=== PATIENT | male | born 1940 ===

== ENCOUNTER 2023-04-24 07:33 | Day surgery (SDC) | payer OTHER ==
[~2023-04-24] VITALS: Ht 177.8 cm; Wt 91.4 kg
[~2023-04-24 07:33] MED LIST: Lactated Ringer's 1,000 ML IV ONE; propofoL 50 ML IV ONE
[2023-04-24] MEDS ORDERED: VITAMIN D310 MC4 (07:48)
[2023-04-24] MEDS ORDERED: MELA3 (07:48)
[2023-04-24] MEDS ORDERED: HYDCHL50 (07:50)
[2023-04-24] MEDS ORDERED: FAMO10 (07:51)
[2023-04-24] MEDS ORDERED: Percocet 7.5-31 EACH PO (07:51)
[2023-04-24] MEDS ORDERED: CENTRUM SILVER1 EAC2 (07:51)
[2023-04-24] MEDS ORDERED: Lactated Ringer's 1,000 ML IV ONE (08:23)
== END 2023-04-24 09:38 | disposition home or self-care (01) ==
LOC: ORSCSDS 07:33
PROVIDERS: Internal Medicine Gastroenterology
PROC: 0DB58ZX Excision of Esophagus, Via Natural or Artificial Opening Endoscopic, Diagnostic (ICD-10-PCS; principal; 2023-04-24 08:45)
PROC: 0DB68ZX Excision of Stomach, Via Natural or Artificial Opening Endoscopic, Diagnostic (ICD-10-PCS; principal; 2023-04-24 08:45)
DX: R13.10 Dysphagia, unspecified (principal); K21.9 Gastro-esophageal reflux disease without esophagitis; K22.70 Barrett's esophagus without dysplasia; Z87.891 Personal history of nicotine dependence; Z79.899 Other long term (current) drug therapy
CPT/HCPCS: 88305; 88342; J2704; J7120